=== PATIENT | female | born 1985 | race Caucasian/White ===

== ENCOUNTER 2021-09-06 17:35 | Emergency (ER) | payer OTHER ==
[~2021-09-06] VITALS: Ht 157.5 cm; Wt 71.7 kg
[2021-09-06 17:46] VITALS: BP 110/59
--- NOTE | 2021-09-06 19:00 | NUR ---
36YO FEMALE PT C/O INCONISTENT VAGINAL BLEEDING X1.5 WEEKS . PT STATES MILD BLEEDING UPON WHIPING. STATES BLOOD COLOR WILL VARY FROM "RED, BURGUNDY AND BROWN". PT HAS IUD IN PLACE AND COMFIRMED X3 DAYS. DENIES PAIN OR DISCOMFORT. PT WAS TOLD BY PCP TO COME TO ER IF BLEEDING CONTINUED BEFORE SEEING RN NEONATAL ICU. PT [id number] , ALL VITALS WITHIN NORMAL RANGE. ALL NEEDS MET A THIS TIME. BED AT LOWEST POSITION, BED RAILS UP X1. NHX ALLERGIES: VANCOMYCIN
--- NOTE | 2021-09-06 19:30 | NUR ---
REPORT GIVEN TO VICKIE KELLY. TRANSFER OF CARE AT THIS TIME
[2021-09-06 19:32] LABS: BASOPHILS % (AUTO) 0.2 % (0.0-2.0); EOSINOPHILS % (AUTO) 0.5 % (0.0-4.0); HEMATOCRIT 38.9 % (36-48); HEMOGLOBIN 13.2 g/dL (12.0-16.0); LYMPHOCYTES % (AUTO) 26.7 % (20.5-51.1); MEAN CORPUSCULAR HEMOGLOBIN 30 pg (27-31); MEAN CORPUSCULAR HGB CONC 34 g/dL (33-37); MEAN CORPUSCULAR VOLUME 89.6 fL (80-94); MONOCYTES # (AUTO) 0.5 K/uL (0.8-1.0); MONOCYTES % (AUTO) 6.4 % (1.7-9.3); NEUTROPHILS # (AUTO) 4.9 K/uL (1.8-7.7); NEUTROPHILS % (AUTO) 66.2 % (42.2-75.2); PLATELET COUNT (AUTO) 248 K/uL (140-450); RED BLOOD CELL COUNT(AUTO) 4.34 MIL/uL (4.20-5.40); RED CELL DISTRIBUTION WIDTH 13.4 % (11.6-13.7); WHITE BLOOD COUNT (AUTO) 7.4 K/uL (4.8-10.8)
--- NOTE | 2021-09-06 19:53 | NUR ---
RETURNED [facility] US
[2021-09-06 20:05] LABS: ALBUMIN 3.3 g/dL (3.4-5.0); CARBON DIOXIDE 30.1 mmol/L (21-32); CREATININE 0.8 mg/dL (0.6-1.3); POTASSIUM 3.1 mmol/L (3.5-5.1); TOTAL BILIRUBIN 0.4 mg/dL (0.0-1.0)
== END 2021-09-06 21:30 | disposition home or self-care (01) ==
LOC: MED 17:35
DX: O20.0 Threatened abortion (principal); Z3A.01 Less than 8 weeks gestation of pregnancy; Z88.1 Allergy status to other antibiotic agents
CPT/HCPCS: 36415; 76801; 80053; 81002; 81025; 84702; 85025; 86900; 86901; 99284; Q0092